=== PATIENT | male | born 1945 | race Caucasian/White ===

== ENCOUNTER 2021-03-23 15:33 | Emergency (ER) | payer OTHER ==
[2021-03-23 16:43] LABS: BASOPHIL 0.5 % (0-2); HCT 39.6 % (42.0-52.0); HGB 13.1 g/dl (13.2-18.0); LYMPHOCYTE 17.6 % (15-48); MCH 31.3 pg (25.0-31.0); MCHC 33.1 g/dL (32.0-36.0); MCV 94.7 fL (78.0-100.0); MONOCYTE 8.9 % (0-12); MPV 10.4 fL (6.0-9.5); NEUTROPHIL 69.6 % (41-80); NRBC 0; PLT 164 K/uL (150-400); RBC 4.18 M/uL (4.70-6.00); WBC 8.1 K/uL (4.0-10.5)
[2021-03-23 17:03] LABS: BUN/CREAT RATIO (CALC) 14.9 RATIO; CREATININE 0.67 mg/dL (0.67-1.17)
[2021-03-23] MEDS ORDERED: CEPHALEXIN500 MG PO (17:46)
== END 2021-03-23 17:50 | disposition home or self-care (01) ==
LOC: FER 15:33
PROVIDERS: Nurse Practitioner Family
DX: L03.116 Cellulitis of left lower limb (principal); Z98.890 Other specified postprocedural states; Z88.0 Allergy status to penicillin
CPT/HCPCS: 36415; 80048; 83880; 85025; 93971

== ENCOUNTER 2021-04-01 08:57 | Emergency (ER) | payer MEDICARE ==
[~2021-04-01 08:57] MED LIST: CEPHALEXIN500 MG PO
[2021-04-01 09:52] LABS: BASOPHIL 0.6 % (0-2); EOSINOPHIL 3.3 % (0-7); HCT 41.8 % (42.0-52.0); HGB 13.7 g/dl (13.2-18.0); LYMPHOCYTE 19.8 % (15-48); MCHC 32.8 g/dL (32.0-36.0); MCV 94.6 fL (78.0-100.0); MONOCYTE 10.7 % (0-12); MPV 10.5 fL (6.0-9.5); NEUTROPHIL 65.1 % (41-80); NRBC 0; PLT 178 K/uL (150-400); RBC 4.42 M/uL (4.70-6.00); RDW 14.3 % (11.5-14.0); WBC 6.3 K/uL (4.0-10.5)
[2021-04-01 10:11] LABS: ALBUMIN 3.1 g/dL (3.4-5.0); BILIRUBIN - TOTAL 0.8 mg/dL (0.2-1.0); BUN/CREAT RATIO (CALC) 12.3 RATIO; C-REACTIVE PROTEIN 4.4 mg/dL (<=0.90); CREATININE 0.57 mg/dL (0.67-1.17); GLOBULIN (CALCULATION) 3.5 g/dL; POTASSIUM 4.1 mmol/L (3.5-5.1); TOTAL PROTEIN 6.6 g/dL (6.4-8.2); URIC ACID 5.2 mg/dL (3.5-7.2)
[2021-04-01] MEDS ORDERED: NAPROXEN500 MG PO (11:58)
[2021-04-01] MEDS ORDERED: NORCO 5-325 TA1 EACH PO ×2 (11:58→12:05)
== END 2021-04-01 12:10 | disposition home or self-care (01) ==
LOC: FER 08:57
PROVIDERS: Emergency Medicine
DX: M79.642 Pain in left hand (principal); M79.89 Other specified soft tissue disorders; M19.042 Primary osteoarthritis, left hand
CPT/HCPCS: 36415; 73130; 80053; 84550; 85025; 86140

== ENCOUNTER 2021-05-20 08:01 | Inpatient (IN) | payer MEDICARE ==
[~2021-05-20] VITALS: Ht 180.3 cm; Wt 99.8 kg
[~2021-05-20 08:01] MED LIST changes: +NAPROXEN500 MG PO; +NORCO 5-325 TA1 EACH PO
[2021-05-20 08:58] LABS: BASOPHIL 0.4 % (0-2); EOSINOPHIL 1.6 % (0-7); HGB 14.8 g/dl (13.2-18.0); LYMPHOCYTE 9.1 % (15-48); MCH 31.2 pg (25.0-31.0); MCHC 32.2 g/dL (32.0-36.0); MPV 11.4 fL (6.0-9.5); NEUTROPHIL 79.4 % (41-80); NRBC 0; PLT 143 K/uL (150-400); RBC 4.74 M/uL (4.70-6.00); RDW 14.3 % (11.5-14.0); WBC 10.5 K/uL (4.0-10.5)
[2021-05-20 09:32] LABS: CORONAVIRUS 2019 SARS-COV-2 NEGATIVE (NEGATIVE); INFLUENZA A NAA NEGATIVE (NEGATIVE)
[2021-05-20 10:09] LABS: LACTIC ACID 1.2 mmol/L (0.4-1.9)
[2021-05-20 10:14] LABS: ALBUMIN 3.5 g/dL (3.4-5.0); BILIRUBIN - TOTAL 1.4 mg/dL (0.2-1.0); BUN/CREAT RATIO (CALC) 13.1 RATIO; CREATININE 0.61 mg/dL (0.67-1.17); GLOBULIN (CALCULATION) 3.5 g/dL; POTASSIUM 3.9 mmol/L (3.5-5.1)
[2021-05-20] MEDS ORDERED: DICLOFENAC SODI75 MG PO (12:39)
[2021-05-20] MEDS ORDERED: PRAVACHOL20 MG PO (12:41)
[2021-05-20 13:47] LABS: BILIRUBIN NEGATIVE (NEGATIVE); BLOOD NEGATIVE Ery/uL (NEGATIVE); CLARITY CLEAR (CLEAR); COLOR YELLOW (YELLOW); GLUCOSE (U) NORMAL (NORMAL); LEUKOCYTES NEGATIVE Leu/uL (NEGATIVE); NITRITE NEGATIVE (NEGATIVE); PROTEIN NEGATIVE (NEGATIVE); SPECIFIC GRAVITY 1.025 (1.001-1.030); UROBILINOGEN 0.2 mg/dL (0.2-1.0); pH 5.5 (5.0-9.0)
[2021-05-21 06:53] LABS: BASOPHIL 0.1 % (0-2); EOSINOPHIL 0 % (0-7); HCT 42.3 % (42.0-52.0); HGB 13.3 g/dl (13.2-18.0); LYMPHOCYTE 6.8 % (15-48); MCH 30.5 pg (25.0-31.0); MCHC 31.4 g/dL (32.0-36.0); MONOCYTE 5.5 % (0-12); MPV 11.4 fL (6.0-9.5); NEUTROPHIL 86.9 % (41-80); NRBC 0; PLT 152 K/uL (150-400); RBC 4.36 M/uL (4.70-6.00); RDW 13.9 % (11.5-14.0)
[2021-05-21 07:17] LABS: ALBUMIN 3.2 g/dL (3.4-5.0); BILIRUBIN - TOTAL 0.4 mg/dL (0.2-1.0); BUN/CREAT RATIO (CALC) 22.4 RATIO; CREATININE 0.58 mg/dL (0.67-1.17); GLOBULIN (CALCULATION) 3.5 g/dL; POTASSIUM 4.4 mmol/L (3.5-5.1); TOTAL PROTEIN 6.7 g/dL (6.4-8.2)
[2021-05-22 06:30] LABS: BASOPHIL 0.1 % (0-2); EOSINOPHIL 0.5 % (0-7); HCT 40.6 % (42.0-52.0); HGB 12.6 g/dl (13.2-18.0); LYMPHOCYTE 15.8 % (15-48); MCH 30.7 pg (25.0-31.0); MCV 98.8 fL (78.0-100.0); MONOCYTE 7.9 % (0-12); MPV 11.7 fL (6.0-9.5); NEUTROPHIL 75.2 % (41-80); NRBC 0; PLT 151 K/uL (150-400); RBC 4.11 M/uL (4.70-6.00); RDW 14.2 % (11.5-14.0); WBC 8.7 K/uL (4.0-10.5)
[2021-05-22 06:53] LABS: BUN/CREAT RATIO (CALC) 29.8 RATIO; CREATININE 0.57 mg/dL (0.67-1.17); POTASSIUM 3.6 mmol/L (3.5-5.1)
--- NOTE | 2021-05-22 16:06 | NUR ---
05/22/21 Mr. Timmons and his spouse live with his carolineon, bryan's spouse, 2 grandchildren, and a [email or web address] He is independent in the home and community and recently started a job at [employer]. He is no longer using 02. - No discharge planning needs are anticipated.
[2021-05-23 07:40] LABS: BASOPHIL 0.3 % (0-2); EOSINOPHIL 0.8 % (0-7); HCT 40.5 % (42.0-52.0); HGB 12.4 g/dl (13.2-18.0); LYMPHOCYTE 22.7 % (15-48); MCH 30.2 pg (25.0-31.0); MCHC 30.6 g/dL (32.0-36.0); MCV 98.5 fL (78.0-100.0); MONOCYTE 9.8 % (0-12); NEUTROPHIL 65.8 % (41-80); NRBC 0; PLT 148 K/uL (150-400); RBC 4.11 M/uL (4.70-6.00); RDW 14.1 % (11.5-14.0); WBC 6.5 K/uL (4.0-10.5)
[2021-05-23 07:48] LABS: BUN/CREAT RATIO (CALC) 23.7 RATIO; CREATININE 0.59 mg/dL (0.67-1.17)
[2021-05-23] MEDS ORDERED: PREDNISONE 20MG20 MG PO (12:54)
[2021-05-23] MEDS ORDERED: SYMBICORT 80-10.2 GM INH (12:54)
[2021-05-23] MEDS ORDERED: PROVENTIL HFA6.7 GM INH (12:54)
[2021-05-23] MEDS ORDERED: VIBRAMYCIN100 MG PO (12:54)
== END 2021-05-23 13:50 | disposition home or self-care (01) | DRG 193 ==
LOC: FER 08:01 → FMS 09:54
PROVIDERS: Emergency Medicine; Internal Medicine; ADMIT Family Medicine
DX: J18.9 Pneumonia, unspecified organism (principal); J96.01 Acute respiratory failure with hypoxia; J44.1 Chronic obstructive pulmonary disease with (acute) exacerbation; J44.0 Chronic obstructive pulmonary disease with (acute) lower respiratory infection; Z20.822 Contact with and (suspected) exposure to COVID-19; E78.5 Hyperlipidemia, unspecified; M35.3 Polymyalgia rheumatica; F17.200 Nicotine dependence, unspecified, uncomplicated; Z96.652 Presence of left artificial knee joint; Z88.0 Allergy status to penicillin
CPT/HCPCS: 36415; 36600; 71045; 80048; 80053; 81003; 82803; 83605; 85025; 87040; 93005; 94010; 94640; 94760; 94762; 97162; 97166; 97530-GP; 97535; J0456; J0696; J1650; J2930; J7050; J7512; U0002